=== PATIENT | male | born 1990 | race Caucasian/White ===

== ENCOUNTER 2020-05-22 12:53 | Emergency (ER) | payer MEDICAID, SELFPAY ==
[2020-05-22 13:14] VITALS: BP 147/108; PULSE 98; RESP 18; TEMP 36.9; O2SAT 99; BMI 27.6
--- NOTE | 2020-05-22 13:17 | XR_ITS ---
EXAMINATION: RIGHT HAND CLINICAL INFORMATION: LIMITED RANGE OF MOTION RIGHT HAND AND WRIST DUE TO WOUND. COMPARISON: None TECHNIQUE: 5 views of the right hand and wrist FINDINGS: A dressing is seen about the first proximal phalanx and webspace. There is soft tissue swelling present. No metallic radiopaque foreign body is appreciated. No acute fracture or dislocation is seen. No gas within the soft tissues identified. There is a small bony density seen on one view overlying the triangular fibrocartilage of uncertain significance and may represent sequela of previous trauma. I cannot tell on lateral film whether this actually lies within the joint or is external to it. XR/XR hand wrist RT IMPRESSION: Soft tissue swelling without underlying bony abnormality appreciated. No metallic foreign body seen.
[2020-05-22] MEDS: Ibuprofen 800 MG TABLET PO (13:30)
--- NOTE | 2020-05-22 13:48 | PC.NURSE ---
KASSY DYER CONSULTING WITH ORTHOPEDICS.
--- NOTE | 2020-05-22 13:49 | ED.WOUNDLAC ---
HPI - Wound/Laceration General Chief Complaint: Wound/Laceration Stated Complaint: hand laceration Time Seen by Provider: 05/22/20 13:15 Source: patient Mode of arrival: ambulatory Limitations: no limitations History of Present Illness HPI narrative: patient presents to ED for right hand laceration. Patient states he was at home doing some sanding and by accident he cut himself with the machine. Patient states laceration is on palm area of the thumb and in between thumb and index finger. Related Data Previous Rx's Medication Instructions Recorded cephalexin 500 mg PO QID #28 cap 05/22/20 naproxen 500 mg PO BID PRN #20 tab 05/22/20 Allergies Allergy/AdvReac Type Severity Reaction Status Date / Time No Known Allergies Allergy Verified 05/22/20 13:17 Review of Systems Review of Systems: Yes all other systems are reviewed and are negative and unobtainable due to endotracheal tube Eyes: Eyes: Reports as per HPI and Reports no additional eye complaints ENT: Reports system reviewed and no additional complaints, except as documented and Reports as per HPI Cardiovascular: Cardiovascular: Reports as per HPI and Reports no additional cardiovascular complaints Respiratory: Respiratory: Reports as per HPI and Reports no additional respiratory complaints Gastrointestinal: Gastrointestinal: Reports as per HPI and Reports no additional gastrointestinal complaints Genitourinary: Genitourinary: Reports no additional male genitourinary complaints and Reports as per HPI Musculoskeletal: Musculoskeletal: Reports no additional musculoskeletal complaints and Reports as per HPI Comments: Right hand laceration Neurologic: Reports system reviewed and no additional complaints, except as documented and Reports as per HPI Psychiatric: Psychiatric: Reports no additional psychiatric complaints and Reports as per HPI [facility] Past Medical History Medical History No known health problems Social History Social History Advance Directives: No Advance Directives Information Provided: No Physical Exam Vital Signs: Vital Signs: Last Vital Signs Temp 98.4 F 05/22/20 13:14 Pulse 98 05/22/20 13:14 Resp 18 05/22/20 13:14 BP 147/108 H 05/22/20 13:14 Pulse Ox 99 05/22/20 13:14 Body Mass Index 27.6 Const: General: cooperative, healthy appearing, comfortable, no acute distress, well developed, alert, awake and Physically active Orientation/consciousness: patient oriented x3 HENMT: Head: Yes normal to inspection and Yes No palpable skull fracture present Eyes: General: appearance normal, both eyes and all related structures Neck: Neck: Yes normal visual inspection, Yes full ROM, Yes no lymphadenopathy, Yes no meningeal signs, Yes trachea midline, Yes supple and No tender Chest: Chest palpation & inspection: normal inspection of the chest and normal palpation of entire chest wall Resp: Effort & Inspection: normal respiratory effort and able to speak in complete sentences Auscultation: clear to auscultation bilaterally Cardio: Jugular venous distension: no JVD Heart sounds: S1 normal heart sound present and S2 normal heart sound present GI: Inspection: Yes normal to inspection : General: Yes no CVA tenderness Back/Spine/Pelvis: Back: no CVA tenderness and No back tenderness Skin: Other: positive for right hand laceration. Neuro: General: patient oriented x3, gait normal, no meningeal signs and CN's II-XI intact bilaterally Cranial nerves: Yes CN's II-XII intact bilaterally Extrem: Other: Right hand: patient has severe laceration on palm aspect of right thumb were piece of meat in skin is missing not able to be reattached. Patient has diminised extension and flexion which may indicate tendon injury. Patient has laceration in the webspace between right thumb and index finger. Capillary refill intact. Patient has sensation of right thumb. positive for right 3rd finger abrasion. Other extremities are normal and negative for any signs of trauma. Psych: Appearance: grossly normal, well kempt and not disheveled Course Course Course Narrative: Due to severity of laceration and tendon injury and possible need of plastic reconstructive hand surgery will contact orthopedics on-call after x-ray comes back. Reevaluation(s) Reevaluation #1: Hand x-ray came back negative for any fracture will contact orthopedic surgeon Dr. Louise. Reevaluation #2: Spoke with Dr. Louise of Orthopedics. he was sent pictures of patient's laceration, informed of history / physical exam, and x-ray report. He states patient does not need transfer. He states loosely suture the lacerations as best as possible and patient should follow-up on Tuesday with hand surgeon Dr. Dailey. He recommends thumb spica. Reevaluation #3: 4 sutures were placed through the webspace between right thumb and right index finger. Palm aspect of thumb at PIP has significant piece of subcutaneous fat and skin misssing which did not allow for closure of wound during attempt. Due to this finger was placed in xeroform. Patient placed in thumb spica splint. Laceration sutures were nylon size 4. wound was anesthetized with 6 mL of 2% lidocaine. Wound was cleaned with Betadine iodine and normal saline. Patient will be discharged with antibiotics. patient given tetanus injection. Time: 16:17 MDM - Wound/Laceration MDM Narrative Medical decision making narrative: Complex thumb laceration and possible tendon injury. Discharge Plan Discharge Clinical Impression: Laceration, Injury of tendon of finger Patient Disposition: Home, Self-Care Instructions: Finger Laceration (ED), Tendon Laceration (ED) Additional Instructions: return to the ED immediately for increased swelling, redness, pus discharge, foul odor, complete paralysis, or any other concerning symptoms. Prescriptions: New cephalexin 500 mg capsule 500 mg PO QID Qty: 28 RF: 0 naproxen 500 mg tablet 500 mg PO BID PRN (Reason: pain (scale score 1-3)) Qty: 20 RF: 0 Referrals: Babita Dailey MD [Physician] - 2 days ( right thumb complex laceration with possible tendon injury. Please follow-up this upcoming Tuesday.) Interventions: ED Discharge Assessment Last Done: 05/22/20 16:31 Discharge Date/Time: 05/22/20 16:32 Print Language: Uzbek
[2020-05-22] MEDS: oxyCODONE HCl Immed Release 5 MG TABLET PO (14:15)
[2020-05-22] MEDS: Lidocaine HCl 2 % MPF 5 ML VIAL INFILTRATI ×2 (14:55)
== END 2020-05-22 16:32 | disposition home or self-care (01) ==
PROVIDERS: Emergency Provider Emergency Medicine
DX: S61.011A Laceration without foreign body of right thumb without damage to nail, initial encounter (principal); W31.2XXA Contact with powered woodworking and forming machines, initial encounter; Y93.9 Activity, unspecified; Y92.019 Unspecified place in single-family (private) house as the place of occurrence of the external cause; Y99.9 Unspecified external cause status
CPT/HCPCS: 12041; 73110; 73130; 90471; 90715; 99283; 99284

== ENCOUNTER → 2020-05-26 09:03 | Outpatient (BNVA) | payer MEDICAID, SELFPAY | PROVIDERS: Visit Provider Orthopaedic Surgery | DX: S64.40XA Injury of digital nerve of unspecified finger, initial encounter (principal); S56.121A Laceration of flexor muscle, fascia and tendon of right index finger at forearm level, initial encounter; S61.411A Laceration without foreign body of right hand, initial encounter; W27.1XXA Contact with garden tool, initial encounter; Y93.H2 Activity, gardening and landscaping; Y92.9 Unspecified place or not applicable; Y99.8 Other external cause status | CPT/HCPCS: 99202 ==

== ENCOUNTER 2020-05-27 10:52 | Day surgery (SDC) | payer MEDICAID, SELFPAY ==
[2020-05-27] VITALS (10 sets, daily range): BP systolic 120–138; BP diastolic 75–85; PULSE 80–125; RESP 14–18; TEMP 36.1–37.1; O2SAT 92–98; BMI 27.6
--- NOTE | 2020-05-27 12:24 | MHC.SHP ---
Pre-Procedural Eval Section A The patient is an INPATIENT: No The History & Physical has been completed within 30 days and I have reviewed it.: Yes Section B Chief Complaint: laceration of right thumb flexor muscle, Details of Present Illness: Right thumb laceration, possible FPL tendon and or ulnar digital nerve involvement Allergies: Allergies Allergy/AdvReac Type Severity Reaction Status Date / Time No Known Allergies Allergy Verified 05/22/20 13:17 Plan Patient has been examined and remains a candidate for the planned procedure
--- NOTE | 2020-05-27 12:49 | P.CONAN_ITS ---
[facility] Past Medical History Medical History No known health problems Social History Social History Smoking Status: Never smoker Use of substances other than those prescribed or required for medical reasons: No Advance Directives: No Advance Directives Information Provided: Yes Current occupational status: unemployed Current occupation: rt handed, smokes marijuana occasionally Meds Allergies Allergy/AdvReac Type Severity Reaction Status Date / Time No Known Allergies Allergy Verified 05/22/20 13:17 Exam Exam Date and Time: May 27, 2020 1249 Height,Weight and Vital Signs: Height 6 ft 2 in Weight 97.522 kg Last Vital Signs Temp 98.7 F 05/27/20 11:50 Pulse 80 05/27/20 11:50 Resp 18 05/27/20 11:50 BP 138/85 05/27/20 11:50 Pulse Ox 98 05/27/20 11:50 Airway Mallampati Class: II TM Dist: >3cm Neck ROM: Full Loose/Missing/Broken Teeth: No Heart: rrr+[id number] Lungs: cta b/l Assessment and Plan Assessment Anesthesia Assessment: Anesthesia Plan Discussed and Chart Reviewed Final Anesthetic Review NPO: Yes ASA Class: II Final Preanesthetic Review: No Changes in Pt Med Stat, Meds/Allgs Chart Reviewed, Consent Obtained/Reviewed and Anes Risks/Benef Reviewed Patient Risk: Low Procedure Risk: Low Assessment/Block/Sedation in SS: Assess/Block/Sedation-SS Anesthetic Plan Anesthetic Plan: GA Disposition: Standard PACU
--- NOTE | 2020-05-27 16:34 | P.OP_ITS ---
Operative Note Operative Note Date of Service: 05/27/20 Narrative: Operative Note Narrative: Preop diagnosis: 1. Complex wound involving volar aspect of right open thumb and 1st web space 2. Right thumb ulnar digital nerve laceration 3. Right ring finger volar laceration at the PIP joint Postop diagnosis: Same Procedure: 1. I and D complex wound of the right thumb and 1st webspace, and the wound on the volar aspect of the right ring finger 2. Reconstruction of right thumb ulnar digital nerve using a Synthes 2.0 mm conduit under loupe magnification 3. Delayed primary closure of the complex 9.0 cm wound of the thumb and 1st web space, and also of the 2.0 cm wound of the volar aspect of the right ring finger Surgeon: Babita Dailey MD Anesthesia: Mac plus regional block Findings: Segmental loss of a section of the right thumb ulnar digital nerve leaving a gap of approximately 1.2 cm Small scratch on the flexor pollicis longus tendon, FPL tendon intact 2.0 cm length of the ulnar digital artery to the right thumb detached just proximal to the IP joint, thrombosed 2.0 cm chevron-shaped laceration involving the volar surface of the right ring finger at the PIP joint extended down to the flexor tendon sheath, but no evidence of tendon or neurovascular involvement. Complex wound involving dorsal aspect of the 1st web space on the volar aspect of the thumb measuring approximately 9.0 cm total length. Wound without gross evidence of infection Implants: Synthes 2.0 mm diameter by 2.5 cm in length nerve conduit Tourniquet time: 125 minutes EBL: 5.0 ml Specimen: None Drains: None Complications: None Disposition: Brought to the recovery room in stable condition Plan: Follow-up in 10-14 days for wound check. Anticipate removal of some sutures, a few of the sutures in the 1st webspace of the thumb may need to be retained for an additional week. Take care not to allow extension of the thumb due to repair of ulnar digital nerve with a conduit. Short-arm thumb spica cast the thumb in slight flexion until about 6 weeks postop Patient will finish all antibiotics given to him by the emergency department Indications: The patient is a 30 year old man with a traumatic injury primarily involving the right 1st web space and volar aspect of the from sustained by a standing edger approximately 4 days ago. On wound was consistent with a likely laceration or avulsion of the right thumb ulnar digital nerves, and question of a partial flexor pollicis longus tendon injury. . The risks and benefits of operative treatment, including but not limited to risk of damage to blood vessels, nerves, tendons, infection, recurrence, persistent pain or numbness, incomplete resolution of preoperative symptoms, or need for further surgery were discussed with the patient and they wished to proceed with surgery. Procedure: Once consent was obtained patient was brought back to the operating suite and placed in the operating table in a supine position. A regional block was performed by the anesthesia team. Perioperative antibiotics and anesthesia was administered by the anesthesia team. A tourniquet was applied to the proximal aspect of the upper extremity and the limb was prepped and draped in a standard surgical fashion. The limb was elevated exsanguinated with Esmarch bandage and the tourniquet inflated to 250 mm of mercury for a total tourniquet time of right 125 minutes. Sutures in the dorsal aspect of the 1st webspace were removed. The 1st explored the wound on the volar aspect of the right ring finger. It measured 2.0 cm in length and was chip crusher operator shaped. It did extend down to the level of the flexor tendon sheath, but I did not see any tendon involvement, and the did not appear to be any involvement of the neurovascular structures. The wound was irrigated in the wound edges sharply debrided using tenotomy scissors. The wound was then closed using some 5 0 nylon suture material. I then turned my attention to the complex involving the dorsal aspect of the 1st webspace of the at the volar aspect of the right thumb from about MP flexion crease to IP flexion crease. The wound was explored. It was extended proximally approximately 1.5 cm, and distally approximately 1.5 cm in a Augustine type fashion. This was done using a 15. Blade through the skin the subcutaneous tissues. An approximately 1.5 cm length of the ulnar digital artery was thrombosed and protruding from the volar flap the tissues. Exploration of the wound showed that both the ulnar digital artery and the ulnar digital nerve appeared to have been lacerated or avulsed at the level just proximal to the IP joint. The proximal aspect of the ulnar digital nerve was identified in the proximal flap the tissues adjacent to the ulnar digital artery. There was a segmental loss of approximately 1.2 cm from ulnar digital nerve. The flexor pollicis longus tendon sheath was noted to be violated, however there was only a small scratch in the volar surface of the flexor pollicis longus tendon. Tendon itself was intact and without significant injury. There is also a partial laceration of the abductor pollicis tendon near its insertion. There was no purulence or gross evidence of infection. The was copiously irrigated with normal saline and the wound edges debrided of any devitalized tissues using iris scissors. I then turned my attention to the right thumb ulnar digital nerve reconstruction. Both the proximal and distal nerve edges were cut back to healthy-appearing nerve tissue. I elected to use a conduit cause of the segmental loss the nerve which measured approximately 1.2 cm with slight flexion at the IP joint. The operative microscope was present in the room in made ready. I selected a Synthes 2.0 mm diameter by 2.5 cm length nerve conduit. This was placed on the table in some saline for at least 5 minutes. I 1st repaired the proximal and of the ulnar digital nerve to our conduit using some 8 0 nylon suture material under loupe magnification. The nerve and was brought into conduit and secured. I then cut the conduit to the necessary length of approximately 1.2 cm. The distal end of the ulnar digital nerve was then placed within the conduit and secured using a 2-0 nylon suture material under loupe magnification. I was satisfied with our reconstruction 50 not appear to have any significant tension with the thumb at rest. The complex wound to the 1st webspace of the thumb was again copiously irrigated with normal saline. I was able to reapproximate the skin edges using 4-0 and 5 0 nylon suture material. The wounds were loosely closed to allow for any drainage, but we had good coverage of the conduit, and the skin graft was not necessary. The tourniquet was then deflated and we had excellent capillary refill returned to all digits including the thumb. Hemostasis is obtained with a brief period of local pressure. Sterile dressings and a short-arm thumb spica splint holding the thumb in slight flexion was applied. The patient appears to have had an excellent regional block, and no local anesthetic was therefore placed. The patient appears to have tolerated the procedure well and with no complications. All digits were well vascularized conclusion of the case.
--- NOTE | 2020-05-27 17:08 | PC.NURSE ---
SURGEON AT BEDSIDE TO MEET WITH PATIENT TO REVIEW DISCHARGE INSTRUCTIONS.
--- NOTE | 2020-05-27 17:11 | PC.NURSE ---
PATIENT COMPLAINING OF NAUSEA MILD. DR. MASTERS AND DR. WARREN MADE AWARE. IVF WIDE OPEN. PATIENT SWEATY, GIVEN COOL CLOTH. POST OP ANESTHESIA ORDERS REQUESTED FOR CATHRYN REQUESTED.
[2020-05-27] MEDS: ondansetron HCL 4 MG/2 ML VIAL IVPUSH (17:25)
--- NOTE | 2020-05-27 17:38 | PC.NURSE ---
EDUCATED IN USE OF I/S. ATTAINED GOOD EFFORT 2300 ML X4
--- NOTE | 2020-05-27 18:00 | PC.NURSE ---
ASSISTED OOB TO DRESS IN CHAIR. GIVEN SUPPORT TO DRESS. NO COMPLAINTS OF DIZZINESS.
--- NOTE | 2020-05-27 18:06 | PC.NURSE ---
OOB AMBULATED TO BATHROOM TO VOID. NO COMPLAINTS OF DIZZINESS. VOIDX1. TAKING ADDITIONAL PO FLUIDS NO COMPLAINTS OF NAUSEA.
== END 2020-05-27 18:16 | disposition home or self-care (01) ==
PROVIDERS: Visit Provider Orthopaedic Surgery
PROC: (CPT 64912; principal; 2020-05-27 12:30)
DX: S64.31XA Injury of digital nerve of right thumb, initial encounter (principal); S66.021A Laceration of long flexor muscle, fascia and tendon of right thumb at wrist and hand level, initial encounter; S61.401A Unspecified open wound of right hand, initial encounter; S65.011A Laceration of ulnar artery at wrist and hand level of right arm, initial encounter; S61.214A Laceration without foreign body of right ring finger without damage to nail, initial encounter; W31.89XA Contact with other specified machinery, initial encounter; Y93.89 Activity, other specified; Y92.9 Unspecified place or not applicable; Y99.8 Other external cause status
CPT/HCPCS: 64912; 12004; 13131; J0690; J1100; J1170; J2250; J2405; J3010

== ENCOUNTER → 2020-06-09 09:27 | Outpatient (BNVA) | payer MEDICAID, SELFPAY | PROVIDERS: Visit Provider Orthopaedic Surgery | DX: S64.40XA Injury of digital nerve of unspecified finger, initial encounter (principal) | CPT/HCPCS: 99212 ==

== ENCOUNTER → 2020-06-16 08:58 | Outpatient (BNVA) | payer MEDICAID, SELFPAY | PROVIDERS: Visit Provider Orthopaedic Surgery | DX: S64.40XD Injury of digital nerve of unspecified finger, subsequent encounter (principal); S56.129D Laceration of flexor muscle, fascia and tendon of unspecified finger at forearm level, subsequent encounter; S61.209D Unspecified open wound of unspecified finger without damage to nail, subsequent encounter | CPT/HCPCS: 99212 ==

== ENCOUNTER 2020-06-23 15:24 | Outpatient (REF) | payer MEDICAID, SELFPAY | END 2020-06-23 15:25 | disposition home or self-care (01) | LOC: HO.LAB 15:24 | PROVIDERS: Visit Provider Internal Medicine | DX: Z20.822 Contact with and (suspected) exposure to COVID-19 (principal) | CPT/HCPCS: 36415; C9803; U0003 ==

== ENCOUNTER 2020-07-07 15:58 | Outpatient (REF) | payer MEDICAID, SELFPAY | END 2020-07-07 15:59 | disposition home or self-care (01) | LOC: HO.LAB 15:58 | PROVIDERS: Visit Provider Internal Medicine | DX: Z20.822 Contact with and (suspected) exposure to COVID-19 (principal) | CPT/HCPCS: 36415; C9803; U0003 ==

== ENCOUNTER → 2020-07-14 08:48 | Outpatient (BNVA) | payer MEDICAID, SELFPAY | PROVIDERS: Visit Provider Orthopaedic Surgery | DX: S61.419D Laceration without foreign body of unspecified hand, subsequent encounter (principal); S66.9 Injury of unspecified muscle, fascia and tendon at wrist and hand level; S64.40XD Injury of digital nerve of unspecified finger, subsequent encounter | CPT/HCPCS: 99212 ==

== ENCOUNTER → 2020-08-25 08:55 | Outpatient (BNVA) | payer MEDICAID, SELFPAY | PROVIDERS: Visit Provider Orthopaedic Surgery | DX: S64.40XD Injury of digital nerve of unspecified finger, subsequent encounter (principal) | CPT/HCPCS: 99212 ==

== ENCOUNTER → 2020-11-18 10:06 | Outpatient (BNVA) | payer MEDICAID, SELFPAY | PROVIDERS: Visit Provider Orthopaedic Surgery ==